=== PATIENT | female | born 1990 | race African-American/Black ===

== ENCOUNTER 2016-09-18 00:44 | Emergency (ER) | payer BC ==
[2016-09-18] MEDS ORDERED: HYDROmorphone 1 MG/ML Syringe IVPUSH ONE (01:01)
[2016-09-18] MEDS ORDERED: Metoclopramide 10 MG/2 ML SDV IVPUSH ONE (01:02)
--- NOTE | 2016-09-18 01:07 | EDM.PDOC ---
ED HPI GENERAL MEDICAL PROBLEM - General Chief Complaint: Abdominal Pain Stated Complaint: HORRIBLE STOMACH PAIN Time Seen by Provider: 09/18/16 01:00 Source of Information: Reports: Patient, Family (spouse) History Limitations: Reports: No Limitations - History of Present Illness INITIAL COMMENTS - FREE TEXT/NARRATIVE: 26-year-old female presents the ED with acute onset of severe epigastric abdominal pain. She has vomited 4 with bilious emesis no blood. The pain is being worse in the epigastrium and radiate up into her the retrosternal area. Does not radiate through to her back. She has not had any similar previous problems. Last meal was at 8:00 last night. I could not quite grasp what she ate for supper. Writhing in severe pain. She has had previous . and herself denies any possibility of . She takes no medications. She has no allergies. 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.) Middle Abdomen Pain Score (Numeric/FACES): 10 - Related Data Allergies Allergy/AdvReac Type Severity Reaction Status Date / Time No Known Allergies Allergy Verified 09/18/16 00:49 Home Meds: Home Meds oxyCODONE HCl/Acetaminophen [Percocet 5-325 mg Tablet] 1 - 2 each PO Q4H PRN #8 tablet 09/18/16 [Rx] Past Medical History - Past Health History Medical/Surgical History: Denies 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 Denies: Fever, Chills, Malaise, Weakness HEENT: Reports: No Symptoms Respiratory: Reports: No Symptoms Cardiovascular: Reports: No Symptoms Endocrine: Reports: No Symptoms GI/Abdominal: Reports: Abdominal Pain, Nausea (See history of present illness), Vomiting : Reports: No Symptoms Musculoskeletal: Reports: No Symptoms Skin: Reports: No Symptoms Neurological: Reports: No Symptoms Psychiatric: Reports: No Symptoms Hematologic/Lymphatic: Reports: No Symptoms ED EXAM, GI/ABD - Physical Exam Exam: See Below Exam Limited By: Physical Impairment General Appearance: Alert (She is writhing all over the bed very difficult to examine due to the amount of pain she is experiencing.), WD/WN, Severe Distress Eyes: Bilateral: Normal Appearance (No jaundice.) Head: Atraumatic, Normocephalic Neck: Normal Inspection, Supple, Non-Tender, Full Range of Motion Respiratory/Chest: No Respiratory Distress, Lungs Clear, Normal Breath Sounds, No Accessory Muscle Use, Chest Non-Tender Cardiovascular: Normal Peripheral Pulses, Regular Rate, Rhythm, No Edema, No Gallop, No Murmur GI/Abdominal: Soft, Hypoactive Bowel Sounds, Tenderness (Only in the epigastrium.). No: Guarding, Rebound, Rigidity, McBurney's Sign, Psoas Sign, Olea's Sign Back Exam: Normal Inspection, Full Range of Motion Extremities: Normal Inspection, Normal Range of Motion, Non-Tender, No Pedal Edema, Normal Capillary Refill Neurological: Alert, Oriented, CN II-XII Intact, Normal Cognition, Normal Gait, Normal Reflexes Psychiatric: Normal Mood, Tearful Skin Exam: Warm, Dry, Intact, Normal Color, No Rash Course - Vital Signs Last Recorded V/S: Last Vital Signs Temp 36.6 C 09/18/16 01:05 Pulse 89 09/18/16 01:05 Resp 20 09/18/16 01:05 BP 135/111 H 09/18/16 01:05 Pulse Ox 100 09/18/16 01:05 - Orders/Labs/Meds Orders: Active Orders 24 hr Category Date Time Status Abdomen 1V Flat [CR] Stat Exams 09/18/16 01:06 Taken CBC WITH MANUAL DIFF [HEME] Stat Lab 09/18/16 00:59 Results URINALYSIS W/MICROSCOPIC [UA W/MICROSCOPIC] [URIN] Stat Lab 09/18/16 01:45 Results Ketorolac [Toradol] Med 07/14/17 02:30 Active 30 mg IVPUSH ONETIME Sodium Chloride 0.9% [Normal Saline] 1,000 ml Med 09/18/16 01:15 Active IV ASDIRECTED Medication Orders Sodium Chloride (Normal Saline) 1,000 mls @ 250 mls/hr IV ASDIRECTED [facility] Last Admin: 09/18/16 01:19 Dose: 250 mls/hr Ketorolac Tromethamine (Toradol) 30 mg IVPUSH ONETIME [place] Labs: Laboratory Tests 09/18/16 09/18/16 09/18/16 Range/Units 00:59 00:59 00:59 Neutrophils % (Manual) 33 L (40-60) % Band Neutrophils % 0 (0-10) % Lymphocytes % (Manual) 59 H (20-40) % Atypical Lymphs % 6 % Monocytes % (Manual) 2 (2-10) % Eosinophils % (Manual) 0 L (0.7-5.8) % Basophils % (Manual) 0 L (0.1-1.2) Platelet Estimate Adequate Plt Morphology Comment Normal RBC Morph Comment Normal Sodium 138 (136-145) mEq/L Potassium 3.5 (3.5-5.1) mEq/L Chloride 105 (98-107) mEq/L Carbon Dioxide 24 (21-32) mEq/L Anion Gap 12.5 (5-15) BUN 24 H (7-18) mg/dL Creatinine 0.9 (0.55-1.02) mg/dL Est Cr Clr Drug Dosing 84.49 mL/min Estimated GFR (MDRD) > 60 (>60) mL/min BUN/Creatinine Ratio 26.7 H (14-18) Glucose 136 H (74-106) mg/dL Calcium 8.9 (8.5-10.1) mg/dL Total Bilirubin 0.4 (0.2-1.0) mg/dL AST 26 (15-37) U/L ALT 40 (14-59) U/L Alkaline Phosphatase 79 (46-116) U/L C-Reactive Protein < 0.2 (<1.0) mg/dL Total Protein 7.3 (6.4-8.2) g/dl Albumin 3.6 (3.4-5.0) g/dl Globulin 3.7 gm/dL Albumin/Globulin Ratio 1.0 (1-2) Amylase 68 (25-115) U/L HCG, Qual Negative (NEGATIVE) Urine Color (Yellow) Urine Appearance (Clear) Urine pH (5.0-8.0) Ur Specific [place] (1.005-1.030) Urine Protein (Negative) Urine Glucose (UA) (Negative) Urine Ketones (Negative) Urine Occult Blood (Negative) Urine Nitrite (Negative) Urine Bilirubin (Negative) Urine Urobilinogen (0.2-1.0) Ur Leukocyte Esterase (Negative) 09/18/16 Range/Units 01:45 Neutrophils % (Manual) (40-60) % Band Neutrophils % (0-10) % Lymphocytes % (Manual) (20-40) % Atypical Lymphs % % Monocytes % (Manual) (2-10) % Eosinophils % (Manual) (0.7-5.8) % Basophils % (Manual) (0.1-1.2) Platelet Estimate Plt Morphology Comment RBC Morph Comment Sodium (136-145) mEq/L Potassium (3.5-5.1) mEq/L Chloride (98-107) mEq/L Carbon Dioxide (21-32) mEq/L Anion Gap (5-15) BUN (7-18) mg/dL Creatinine (0.55-1.02) mg/dL Est Cr Clr Drug Dosing mL/min Estimated GFR (MDRD) (>60) mL/min BUN/Creatinine Ratio (14-18) Glucose (74-106) mg/dL Calcium (8.5-10.1) mg/dL Total Bilirubin (0.2-1.0) mg/dL AST (15-37) U/L ALT (14-59) U/L Alkaline Phosphatase (46-116) U/L C-Reactive Protein (<1.0) mg/dL Total Protein (6.4-8.2) g/dl Albumin (3.4-5.0) g/dl Globulin gm/dL Albumin/Globulin Ratio (1-2) Amylase (25-115) U/L HCG, Qual (NEGATIVE) Urine Color Yellow (Yellow) Urine Appearance Clear (Clear) Urine pH 6.0 (5.0-8.0) Ur Specific [place] > or = 1.030 (1.005-1.030) Urine Protein Negative (Negative) Urine Glucose (UA) Negative (Negative) Urine Ketones Negative (Negative) Urine Occult Blood Negative (Negative) Urine Nitrite Negative (Negative) Urine Bilirubin Negative (Negative) Urine Urobilinogen 0.2 (0.2-1.0) Ur Leukocyte Esterase Negative (Negative) Meds: Medications Generic Name Dose Route Start Last Admin Trade Name Tom PRN Reason Stop Dose Admin Sodium Chloride 1,000 mls @ 250 mls/hr 09/18/16 01:15 09/18/16 01:19 Normal Saline IV 250 mls/hr ASDIRECTED [place] Administration Ketorolac Tromethamine 30 mg 09/18/16 02:30 Toradol IVPUSH ONETIME [place] Discontinued Medications Generic Name Dose Route Start Last Admin Trade Name Tom PRN Reason Stop Dose Admin Hydromorphone HCl 1 mg 09/18/16 01:01 09/18/16 01:17 Dilaudid IVPUSH 09/18/16 01:02 1 mg ONETIME ONE Administration Magnesium Citrate 210 ml 09/18/16 02:30 Citrate Of Magnesia PO 09/18/16 02:31 ONETIME ONE Metoclopramide HCl 7.5 mg 09/18/16 01:02 09/18/16 01:15 Reglan IVPUSH 09/18/16 01:03 7.5 mg ONETIME ONE Administration Ondansetron HCl 4 mg 09/18/16 02:30 Zofran IVPUSH 09/18/16 02:31 ONETIME ONE - Radiology Interpretation Free Text/Narrative:: 26-year-old female presents to the ED with acute onset of severe epigastric abdominal pain with associated nausea and vomiting. She claims she had a bowel movement early this evening which was normal without blood. Previous abdominal surgery includes a . She does not believe she could be . Has had no similar previous problems. And in particular no known gallstones. Examination shows hypoactive bowel sounds but she is writhing all over the bed difficult to pinpoint exact nature of tenderness. I could not detect any obvious peritoneal signs. Patient be treated with that in Dilaudid 1 mg IV with Reglan 7.5 mg IV and then I will reexamine her. Routine labs ordered including an amylase. - Re-Assessments/Exams Free Text/Narrative Re-Assessment/Exam: 09/18/16 02:00: Labs reveal a sodium of 138 potassium is 3.5 portable 5 bicarbonate 24 and a gap is 12.5. B1 was 24 glucose 136. Amylase was 68 hCG was negative. Bedside ultrasound performed revealed the gallbladder to look pretty normal without any gallbladder wall thickening. I thought I could identify 2 very small gallbladder stones near the neck of the gallbladder but nothing distending the true neck. Her pain is down to 2/10. Will give Zofran 4mg IV for further nausea relief and Toradol 30 mg IV for pain relief. I will send her home on a fat-free diet. I did send her home with a prescription for 8 Percocet tablets that can be taken 1 every 4-6 hours as needed for similar type pain. Advise fat-free diet for at least 2 days. Also because of the x-ray revealing substantial stool throughout the colon she was discharged with Citroma 7 ounces by mouth next with 4-5 ounces of juice of choice taken by mouth orally once. This will provide satisfactory bowel cleanse today. Follow-up as needed. Departure - Departure Time of Disposition: 02:31 Disposition: Home, Self-Care 01 Condition: Fair Clinical Impression: Biliary colic Abdominal pain Qualifiers: Abdominal location: epigastric Qualified Code(s): R10.13 - Epigastric pain - Discharge Information Prescriptions: oxyCODONE HCl/Acetaminophen [Percocet 5-325 mg Tablet] 1 - 2 each PO Q4H PRN #8 tablet PRN Reason: pain relief. Instructions: Biliary Colic, Abdominal Pain, Adult, [id number] Referrals: PCP,None [Primary Care Provider] - Forms: ED Department Discharge Additional Instructions: Evaluation in the emergency room tonight in regards to acute onset of severe epigastric right upper quadrant abdominal pain. So she with nausea and vomiting. You're treated therefore with intravenous fluids and pain medication Dilaudid 1 mg with antinausea medication Reglan 7.5 mg IV. Once her pain came under control and x-ray of the abdomen was performed. It does reveal increased stool throughout the entire colon particularly on the right side. Lab tests done did not reveal any signs of liver or pancreas illness. Bedside ultrasound did suggest to very small gallstones within the gallbladder without evidence of any active gallbladder infection. Which expands tonight was called a gallbladder attack or biliary colic. This usually occurs after eating fat or high protein diet. Suggest clear fluids today such as Gatorade or Powerade to rehydrate you when sure hungry you may resume past and carbohydrates but stay away from all fatty foods for 2 days. I did write a prescription for a few pain pills and she may take if pain comes back. Secondly x-ray of the abdomen did identify increased amount of stool throughout the colon and I would suggest that you take 7 ounces of magnesium citrate mixed with 45 ounces of juice of choice by mouth once later this morning. This usually starts to work in 1-2 hours and will usually make her bowels move 3-5 times often ending in some degree of diarrhea. This is to ensure that the bowel was cleansed and that constipation was not the cause of your pain. - My Orders Last 24 Hours: My Active Orders 09/18/16 00:59 CBC WITH MANUAL DIFF [HEME] Stat 09/18/16 01:06 Abdomen 1V Flat [CR] Stat 09/18/16 01:15 Sodium Chloride 0.9% [Normal Saline] 1,000 ml IV ASDIRECTED 09/18/16 01:45 URINALYSIS W/MICROSCOPIC [UA W/MICROSCOPIC] [URIN] Stat 09/18/16 02:30 Ketorolac [Toradol] 30 mg IVPUSH ONETIME - Assessment/Plan Last 24 Hours: My Active Orders 09/18/16 00:59 CBC WITH MANUAL DIFF [HEME] Stat 09/18/16 01:06 Abdomen 1V Flat [CR] Stat 09/18/16 01:15 Sodium Chloride 0.9% [Normal Saline] 1,000 ml IV ASDIRECTED 09/18/16 01:45 URINALYSIS W/MICROSCOPIC [UA W/MICROSCOPIC] [URIN] Stat 09/18/16 02:30 Ketorolac [Toradol] 30 mg IVPUSH ONETIME
[2016-09-18 01:08] VITALS: BP 135/111
[2016-09-18] MEDS ORDERED: Sodium Chloride 0.9% 1,000 ML IV SCH (01:15)
[2016-09-18] MEDS ORDERED: Ketorolac 30 MG/ML SDV IVPUSH SCH (02:30)
[2016-09-18] MEDS ORDERED: Magnesium Citrate Solution 296 ML Bottle PO ONE (02:30)
[2016-09-18] MEDS ORDERED: Ondansetron 4 MG/2 ML SDV IVPUSH ONE (02:30)
--- NOTE | 2016-09-20 11:10 | CR ---
Abdomen: Supine view of the abdomen was obtained. Scattered gas and stool is noted within the colon which is unremarkable. No abnormal calcifications or soft tissue abnormality is seen. Bony structures are unremarkable. Impression: 1. Unremarkable supine abdominal x-ray. Diagnostic code #1
== END 2016-09-18 02:45 | disposition home or self-care (01) ==
LOC: JD.ED 00:44
DX: K80.50 Calculus of bile duct without cholangitis or cholecystitis without obstruction (principal)
CPT/HCPCS: 36415; 74000; 80053; 81001; 82150; 84703; 85025; 86140; 96361; 96374; 96375; 99284; A9270; J1170; J1885; J2405; J2765; J7040

== ENCOUNTER 2018-05-25 10:42 | Emergency (ER) | payer BC ==
[2018-05-25 11:01] VITALS: BP 127/82
--- NOTE | 2018-05-25 11:32 | EDM.PDOC ---
ED HPI GENERAL MEDICAL PROBLEM - General Chief Complaint: Chest Pain Stated Complaint: CHEST PAIN Time Seen by Provider: 05/25/18 10:49 Source of Information: Reports: Patient History Limitations: Reports: No Limitations - History of Present Illness INITIAL COMMENTS - FREE TEXT/NARRATIVE: The patient presents with right sided chest pain since 6am this morning. She has had a cough, congestion and runny nose for about a week. She has not had much of a fever. She does not smoke. She has no history of heart disease. She has no abdominal pain, nausea or vomiting. Onset: Gradual Duration: Day(s): (today at 6am) Location: Reports: Chest Quality: Reports: Sharp Severity: Moderate Improves with: Reports: None Worsens with: Reports: None Associated Symptoms: Reports: Chest Pain, Cough. 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 Denies: Shortness of Breath Cardiovascular: Reports: No Symptoms Endocrine: Reports: No Symptoms GI/Abdominal: Reports: No Symptoms : Reports: No Symptoms Musculoskeletal: Reports: No Symptoms Skin: Reports: No Symptoms ED EXAM, GENERAL - Physical Exam Exam: See Below Exam Limited By: No Limitations General Appearance: Alert, No Apparent Distress Ears: Normal External Exam Nose: Normal Inspection Head: Atraumatic, Normocephalic Neck: Normal Inspection Respiratory/Chest: No Respiratory Distress, Lungs Clear, Normal Breath Sounds Cardiovascular: Regular Rate, Rhythm, No Edema, No Murmur GI/Abdominal: Soft, Non-Tender, No Organomegaly, No Mass Back Exam: Normal Inspection Extremities: Normal Inspection Neurological: Alert, Oriented, No Motor/Sensory Deficits EKG INTERPRETATION EKG Date: 05/25/18 Time: 10:46 Rhythm: NSR Rate (Beats/Min): 87 [place]: Normal P-Wave: Present QRS: Normal ST-T: Normal QT: Normal Course - Vital Signs Last Recorded V/S: Last Vital Signs Temp 98.4 F 05/25/18 10:47 Pulse 79 05/25/18 10:47 Resp 13 05/25/18 10:47 BP 127/82 05/25/18 10:47 Pulse Ox 100 05/25/18 10:47 - Orders/Labs/Meds Orders: Active Orders 24 hr Category Date Time Status EKG Documentation Completion [RC] ASDIRECTED Care 05/25/18 11:02 Active CXR [Chest 2V] [CR] Stat Exams 05/25/18 11:01 Taken EKG 12 Lead [EK] Stat Ther 05/25/18 11:01 Ordered - Re-Assessments/Exams Free Text/Narrative Re-Assessment/Exam: 05/25/18 11:31 A EKG was done and it shows a NSR with no acute changes. Her CXR looks good. I feel she has some pleurisy with a viral URI. She also says she has sinus pressure to both maxillary sinuses. I will treat her with amoxicillin and something stronger for the cough. Departure - Departure Time of Disposition: 11:45 Disposition: Home, Self-Care 01 Condition: Good Clinical Impression: Viral URI, Pleurisy Sinusitis Qualifiers: Sinusitis location: maxillary Chronicity: acute Recurrence: non-recurrent Qualified Code(s): J01.00 - Acute maxillary sinusitis, unspecified Prescriptions: Codeine/Promethazine [Phenergan with Codeine] 5 - 10 ml PO Q6HR PRN #240 ml PRN Reason: Cough Amoxicillin 1,000 mg PO BID #40 tab Referrals: PCP,None [Primary Care Provider] - Fridrich,Sherry F, PA-C [Physician School Supervisor] - 1 Week Forms: ED Department Discharge Additional Instructions: Take the amoxillin 2 pills 2 times per day for 10 days. Take the phenergan with codeine as needed for the cough. Please return if you are worse. - My Orders Last 24 Hours: My Active Orders 05/25/18 11:01 CXR [Chest 2V] [CR] Stat EKG 12 Lead [EK] Stat 05/25/18 11:02 EKG Documentation Completion [RC] ASDIRECTED - Assessment/Plan Last 24 Hours: My Active Orders 05/25/18 11:01 CXR [Chest 2V] [CR] Stat EKG 12 Lead [EK] Stat 05/25/18 11:02 EKG Documentation Completion [RC] ASDIRECTED
--- NOTE | 2018-05-25 12:04 | CR ---
Chest: Two views of the chest were obtained. Comparison: No prior chest x-ray. Heart size and mediastinum are normal. Lungs are clear. Bony structures are unremarkable. Impression: 1. Nothing acute is seen on two-view chest x-ray. Diagnostic code #1
== END 2018-05-25 12:20 | disposition home or self-care (01) ==
LOC: JD.ED 10:42
DX: J01.00 Acute maxillary sinusitis, unspecified (principal); R09.1 Pleurisy
CPT/HCPCS: 71046; 71046-26; 93005; 93010; 99284; 99285-25